=== PATIENT | male | born 1995 | race African-American/Black ===

== ENCOUNTER 2022-11-05 12:05 | Emergency (ER) | payer SELFPAY ==
[~2022-11-05] VITALS: Ht 182.9 cm; Wt 80.0 kg
[2022-11-05 12:08] VITALS: BP 160/91; PULSE 100; RESP 18; TEMP 98.5; O2SAT 98
[2022-11-05] MEDS ORDERED: QUETIAPINE FUMARATE 50MG TABLET PO ONE (12:15)
[2022-11-05] MEDS ORDERED: HYDROXYZINE 25MG TABLET PO ONE (12:15)
== END 2022-11-05 14:14 | disposition home or self-care (01) ==
LOC: ER 12:22
DX: F15.10 Other stimulant abuse, uncomplicated (principal)
CPT/HCPCS: 99283; Z7610

== ENCOUNTER 2023-12-11 02:01 | Emergency (ER) | payer SELFPAY ==
[~2023-12-11] VITALS: Ht 172.7 cm; Wt 77.0 kg
[2023-12-11 04:25] LABS: BASOPHILS % 0.8 % (0.0-2.0); EOSINOPHILS % 2.9 % (0.0-5.0); HEMATOCRIT. 35.9 % (42.0-52.0); HEMOGLOBIN. 12.2 g/dL (14.0-18.0); LYMPHOCYTES % 24.6 % (20.0-50.0); MEAN CORPUSCULAR HEMOGLOBIN 29.6 pg (28.0-32.0); MEAN PLATELET VOLUME 7.6 fl (7.4-10.4); MONOCYTES % 6.6 % (2.0-8.0); NEUTROPHILS % 65.1 % (40.0-76.0); PLATELET 339 x1000/uL (130-400); RED BLOOD CELL COUNT 4.12 mill/uL (4.7-6.1); RED CELL DISTRIBUTION WIDTH 14.4 % (11.6-14.6); WHITE BLOOD COUNT 11.1 x1000/uL (4.5-11.0)
[2023-12-11 04:26] LABS: CLARITY URINE CLEAR (CLEAR); COLOR URINE YELLOW (YELLOW); GLUCOSE URINE 2+ (NEGATIVE); KETONES URINE NEGATIVE (NEGATIVE); LEUKOCYTE ESTERASE URINE NEGATIVE (NEGATIVE); NITRITE URINE NEGATIVE (NEGATIVE); OCCULT BLOOD URINE NEGATIVE (NEGATIVE); PROTEIN URINE NEGATIVE (NEGATIVE); SPECIFIC GRAVITY URINE 1.005 (1.005-1.030); UROBILINOGEN URINE 0.2 E.U./dL (0.2-1.0)
[2023-12-11 04:43] LABS: CHLORIDE 108 mEq/L (98-107); POTASSIUM 3.8 mEq/L (3.5-5.1); SODIUM 138 mEq/L (136-145)
[2023-12-11 04:44] LABS: CALCIUM 9.6 mg/dL (8.7-10.4); CARBON DIOXIDE 23 mEq/L (21-32)
[2023-12-11 04:49] LABS: CREATININE 0.9 mg/dL (0.6-1.3); GLUCOSE 95 mg/dL (70-105); UREA NITROGEN BLOOD 18 mg/dL (9-23)
[2023-12-11 04:51] LABS: ACETAMINOPHEN < 2 ug/mL (10-30); ALANINE AMINOTRANSFERASE 38 IU/L (10-49); ALBUMIN 4.3 g/dL (3.2-4.8); ASPARTATE AMINOTRANSFERASE 33 IU/L (<34); PROTEIN TOTAL 7.8 g/dL (6.0-8.3)
[2023-12-11 05:04] LABS: *AMPHETAMINES SCREEN URINE NEGATIVE (NEGATIVE); *BARBITURATES SCREEN URINE NEGATIVE (NEGATIVE); *BENZODIAZEPINES SCREEN URINE NEGATIVE (NEGATIVE); *COCAINE SCREEN URINE NEGATIVE (NEGATIVE); METHADONE URINE SCREEN NEGATIVE (NEGATIVE)
[2023-12-11 05:05] LABS: CANNABINOID URINE SCREEN NEGATIVE (NEGATIVE); ECSTASY MDMA SCREEN URINE NEGATIVE (NEGATIVE); OPIATES URINE SCREEN NEGATIVE (NEGATIVE); PHENCYCLIDINE URINE SCREEN NEGATIVE (NEGATIVE)
[2023-12-11] MEDS: LORAZEPAM 2MG/ML INJ IV ONE (05:08)
[2023-12-11] MEDS: DIPHENHYDRAMINE 50MG/ML VIAL IV ONE (05:08)
[2023-12-11] MEDS: HALOPERIDOL LACTATE 5MG/ML VIAL IM ONE (05:08)
[2023-12-11 05:16] VITALS: O2SAT 98
[2023-12-11 05:39] LABS: ETHANOL BLOOD < 10 mg/dL (<10)
[2023-12-11 05:43] LABS: BACTERIA URINE NONE SEEN; RBC URINE NONE SEEN /hpf (0-2); SQUAMOUS EPITHELIAL CELL URINE FEW /lpf (RARE/1+); WBC URINE 0-2 /hpf (0-2)
[2023-12-12 06:21] VITALS: BP 134/76; PULSE 78; RESP 14; TEMP 36.83628; O2SAT 100
== END 2023-12-12 10:41 | disposition home or self-care (01) ==
LOC: ER 02:01
DX: R45.851 Suicidal ideations (principal); F20.9 Schizophrenia, unspecified; Z20.822 Contact with and (suspected) exposure to COVID-19
CPT/HCPCS: 80053; 80305; 81003; 80307; 80329; 80320; 85025; 36415; 96372; 96374; 96375; 99285; 87426; J1200; J1630; J2060; G0480